=== PATIENT | female | born 1985 | race Caucasian/White ===

== ENCOUNTER → 2022-09-16 | Outpatient (CLI) | payer OTHER ==
[2005-04-11 14:34] VITALS: PULSE 98; TEMP 97
[~2022-09-16] MED LIST: LORTAB 5/500 501 TAB PO; PRENATAL VITAMI1 TA5 PO
== END ==
LOC: COL.RAD 13:48
DX: D49.89 Neoplasm of unspecified behavior of other specified sites (principal)
CPT/HCPCS: Q9967